=== PATIENT | male | born 1960 | race Caucasian/White ===

== ENCOUNTER 2017-10-03 21:40 | Emergency (ER) | payer BC, MEDICARE ==
[2017-10-03 23:14] LABS: ABSOLUTE BASOPHILS # (AUTO) 0.1 10^3/uL (0.0-0.2); ABSOLUTE EOSINOPHILS # (AUTO) 0.3 10^3/uL (0.0-0.6); ABSOLUTE LYMPHOCYTES (AUTO) 1.7 10^3/uL (0.5-4.7); ABSOLUTE MONOCYTES (AUTO) 0.7 10^3/uL (0.1-1.4); ABSOLUTE NEUT (AUTO) 6.2 10^3/uL (1.7-8.2); BASOPHILS % (AUTO) 0.8 % (0-2); EOSINOPHILS % (AUTO) 3.4 % (0-6); HEMATOCRIT 42.7 % (37.9-51.0); HEMOGLOBIN 14.3 g/dL (13.5-17.0); LYMPHOCYTES % (AUTO) 19.3 % (13-45); MEAN CORPUSCULAR HGB CONC 33.4 g/dL (32.0-36.0); MEAN CORPUSCULAR VOLUME 90 fl (80-97); MONOCYTES % (AUTO) 7.3 % (3-13); PLATELET COUNT 300 10^3/uL (150-450); RED BLOOD COUNT 4.76 10^6/uL (4.35-5.55); RED CELL DISTRIBUTION WIDTH 15.1 % (11.5-14.0); SEGMENTED NEUTROPHILS % (AUTO) 69.2 % (42-78); TOTAL CELLS COUNTED % (AUTO) 100 %; WHITE BLOOD COUNT 8.9 10^3/uL (4.0-10.5)
[2017-10-04] LABS: APPEARANCE,URINE CLOUDY; BILIRUBIN,URINE NEGATIVE (NEGATIVE); CALCIUM OXALATE CRYSTALS,URINE TOO NUMEROUS TO CNT /HPF; COLOR,URINE YELLOW; GLUCOSE, URINE NEGATIVE (NEGATIVE); KETONES,URINE NEGATIVE (NEGATIVE); LEUKOCYTE ESTERASE,URINE MODERATE (NEGATIVE); NITRITE,URINE NEGATIVE (NEGATIVE); PROTEIN,URINE 100 mg/dL (NEGATIVE); URINE SPECIFIC GRAVITY 1.019
[2017-10-04 00:30] LABS: ALANINE AMINOTRANSFERASE 27 U/L (21-72); ALBUMIN 4.5 g/dL (3.5-5.0); ALKALINE PHOSPHATASE 29 U/L (38-126); ANION GAP 13 (5-19); ASPARTATE AMINO TRANSFERASE 24 U/L (17-59); BILIRUBIN,DIRECT 0.4 mg/dL (0.0-0.4); BILIRUBIN,TOTAL 0.5 mg/dL (0.2-1.3); BLOOD UREA NITROGEN 20 mg/dL (7-20); CARBON DIOXIDE 29 mmol/L (22-30); CHLORIDE 105 mmol/L (98-107); GLUCOSE 111 mg/dL (75-110); LIPASE 270.4 U/L (23-300); POTASSIUM 4.5 mmol/L (3.6-5.0); SODIUM 147.2 mmol/L (137-145); TOTAL PROTEIN 7.4 g/dL (6.3-8.2)
[2017-10-04] MEDS ORDERED: NORMAL SALINE 1000 ML 1,000 ML IV ONE ×2 (00:30→03:14)
[2017-10-04] MEDS ORDERED: CEFTRIAXONE INJ 1000 MG VIAL IV ONE (00:30)
[2017-10-04] MEDS ORDERED: KETOROLAC TROMETHAMINE INJ/PF 30 MG/1 ML SDV IV ONE (00:31)
--- NOTE | 2017-10-04 00:33 | ER Document Report ---
ED General - General Chief Complaint: Lower Abdominal Pain Stated Complaint: ABDOMINAL PAIN Time Seen by Provider: 10/03/17 22:18 Notes: Patient is a 57-year-old male with a past medical history of hypertension, hyperlipidemia, prior CVA, history of incomplete bladder emptying who presents with 24 hours of left flank pain with subjective fever, nausea and frequent urination. The patient describes the pain to his left flank as a severe, stabbing, constant pain that radiates into his left lower abdomen. He states that this feels similar to when he has had kidney stones in the past. Nothing improves or worsens the pain. He has not seen his general doctor or urologist regarding today's concerns. He denies any vomiting, diarrhea, chest pain, shortness of breath, headache, neck pain or cough. TRAVEL OUTSIDE OF THE [place] IN LAST 30 DAYS: No - Related Data Allergies/Adverse Reactions: No Known Allergies Allergy (Verified 01/15/16 13:10) Past Medical History - General Information source: Patient, Relative - Social History Smoking Status: Never Smoker Frequency of alcohol use: None Drug Abuse: None Lives with: Spouse/Significant other Family History: Reviewed & Not Pertinent Patient has suicidal ideation: No Patient has homicidal ideation: No - Past Medical History Cardiac Medical History: Reports: Hx Hypercholesterolemia, Hx Hypertension - hx of- not current-no meds Denies: Hx Coronary Artery Disease, Hx Heart Attack Pulmonary Medical History: Denies: Hx Asthma, Hx Bronchitis, Hx COPD, Hx Pneumonia Neurological Medical History: Reports: Hx Cerebrovascular Accident - 2012. Denies: Hx Seizures Endocrine Medical History: Reports: Hx Diabetes Mellitus Type 2 Renal/ Medical History: Denies: Hx Peritoneal Dialysis Musculoskeletal Medical History: Reports Hx Arthritis - gout Psychiatric Medical History: Reports: Hx Depression Past Surgical History: Reports: Hx Orthopedic Surgery - Immunizations Hx Diphtheria, Pertussis, Tetanus Vaccination: Yes Review of Systems - Review of Systems Notes: Constitutional: Negative for fever. HENT: Negative for sore throat. Eyes: Negative for visual changes. Cardiovascular: Negative for chest pain. Respiratory: Negative for shortness of breath. Gastrointestinal: Positive for abdominal pain and left flank pain. Genitourinary: Positive for dysuria and gross hematuria Musculoskeletal: Negative for back pain. Skin: Negative for rash. Neurological: Negative for headaches, weakness or numbness. 10 point ROS negative except as marked above and in HPI. Physical Exam - Vital signs Vitals: Temp Pulse Resp BP Pulse Ox 98.9 F 99 17 164/99 H 95 10/03/17 21:46 10/03/17 21:46 10/03/17 21:46 10/03/17 21:46 10/03/17 21:46 Interpretation: Hypertensive Notes: PHYSICAL EXAMINATION: GENERAL: Appears moderately uncomfortable but in no acute distress HEAD: Atraumatic, normocephalic. EYES: Pupils equal round and reactive to light, extraocular movements intact, sclera anicteric, conjunctiva are normal. ENT: nares patent, oropharynx clear without exudates. Moist mucous membranes. NECK: Normal range of motion, supple without lymphadenopathy LUNGS: Breath sounds clear to auscultation bilaterally and equal. No wheezes rales or rhonchi. HEART: Regular rate and rhythm without murmurs ABDOMEN: Soft, tenderness to the left lower quadrant and left flank to palpation but no other localized areas of tenderness, normoactive bowel sounds. No guarding, no rebound. No masses appreciated. EXTREMITIES: Normal range of motion, no pitting or edema. No cyanosis. NEUROLOGICAL: No focal neurological deficits. Moves all extremities spontaneously and on command. PSYCH: Normal mood, normal affect. SKIN: Warm, Dry, normal turgor, no rashes or lesions noted. Course - Re-evaluation Re-evalutation: 10/04/17 00:32 Patient presents with 24 hours of suprapubic and left lower quadrant abdominal pain with a history of nephrolithiasis as well as urinary retention. Exam at time of my assessment is quite benign without any areas of focal tenderness, rebound or guarding. No flank tenderness. Labs are notable for findings consistent with possible pyelonephritis versus a possible infected stone. Will proceed with CT abdomen pelvis to clarify if there is a nephrolithiasis present that would indicate need for urgent referral to urology. 10/04/17 02:40 Urinalysis shows findings consistent with a possible infected stone of the pain systemically is well and does not meet sepsis criteria. His CT does show an obstructing 9 mm stone at the left UPJ with associated hydronephrosis. I have contacted [facility] and requested transfer. 10/04/17 03:15 I have discussed with Dr. Contreras the urologist on-call who has requested that I speak to the hospitalist. I spoke Dr. Loc Conley who accepted the patient. I have updated the patient on the plan of care and he is agreeable. 10/04/17 04:08 Patient's pain continues to be well controlled. Awaiting transport. Patient remains hemodynamically within acceptable limits. Maintenance fluids ongoing. - Vital Signs Vital signs: Temp Pulse Resp BP Pulse Ox 99.4 F 99 18 154/97 H 92 10/04/17 03:24 10/04/17 02:52 10/04/17 03:24 10/04/17 02:52 10/04/17 03:24 - Laboratory Result Diagrams: 10/03/17 23:00 10/03/17 23:00 Laboratory results interpreted by me: 10/03/17 10/03/17 10/03/17 23:00 23:00 23:13 RDW 15.1 H Sodium 147.2 H Creatinine 1.43 H Est GFR (Non-Af Amer) 51 L Glucose 111 H Alkaline Phosphatase 29 L Urine Protein 100 H Urine Blood LARGE H Urine Urobilinogen 2.0 H Ur Leukocyte Esterase MODERATE H - Diagnostic Test Radiology reviewed: Reports reviewed Discharge - Discharge Clinical Impression: Kidney stone on left side, Hydronephrosis, left Urinary tract infection Qualifiers: Urinary tract infection type: site unspecified Hematuria presence: with hematuria Qualified Code(s): N39.0 - Urinary tract infection, site not specified ; R31.9 - Hematuria, unspecified; R31.9 - Hematuria, unspecified Condition: Fair Disposition: [facility] Referrals: DASHA MONTIEL MD [Primary Care Provider] - Follow up as needed
--- NOTE | 2017-10-04 01:48 | RADIOLOGY REPORT (SQ) ---
EXAM DESCRIPTION: CT ABDOMEN PELVIS WITHOUT IV CONTRAST COMPLETED DATE/TME: 10/04/2017 00:30 CLINICAL HISTORY: Left abdominal pain. COMPARISON: None Available. TECHNIQUE: CT of the abdomen and pelvis without IV contrast. Evaluation of the solid organs and vasculature is suboptimal due to lack of IV contrast. DLP: 550.06 mGy-cm FINDINGS: Lung Bases: The visualized lung bases are clear. Bones: No destructive bone lesions identified. Minimal endplate spondylosis. Abdomen: Liver: The liver has normal size and density. Gallbladder: No calcified gallstones. Spleen, Pancreas, and Adrenal Glands: The spleen, pancreas, and adrenal glands are unremarkable. Kidneys: Moderate left-sided hydronephrosis. There is an obstructing 0.9 cm calculus at the left UVJ. There is a second calculus in the left renal pelvis measuring 0.9 cm. Scattered punctate nonobstructing left nephrolithiasis. Diffuse perinephric fat stranding on the left. No right-sided hydronephrosis. Vasculature: Aortoiliac atherosclerosis. IVC is unremarkable. Stomach: The stomach and duodenum have normal course. Other: No free intraperitoneal air. No free fluid or lymphadenopathy. Pelvis: Bladder: Urinary bladder is unremarkable. Bowel: Scattered diverticula of the colon without pericolic inflammatory change. No dilated loops of large or small bowel. Appendix: Normal appendix. Pelvis: Enlarged prostate. IMPRESSION: 1. There is a 0.9 cm obstructing calculus at the left UPJ producing moderate left hydronephrosis. 2. There is a second 0.9 cm calculus in the left renal pelvis. Punctate nonobstructing left renal calculi. 3. Enlarged prostate. 4. Diverticulosis without evidence of acute diverticulitis. This exam was performed according to our departmental dose-optimization program, which includes automated exposure control, adjustment of the mA and/or kV according to patient size and/or use of iterative reconstruction technique.
[2017-10-04] MEDS: MORPHINE SULFATE 10 MG/ML INJ IV PRN ×2 (03:39→08:04)
[2017-10-04 07:51] VITALS: BP 144/99
== END 2017-10-04 08:10 | disposition short-term general hospital (02) ==
LOC: ER 21:40
DX: N13.2 Hydronephrosis with renal and ureteral calculous obstruction (principal); N39.0 Urinary tract infection, site not specified; R31.9 Hematuria, unspecified; R50.9 Fever, unspecified; R11.0 Nausea; R35.0 Frequency of micturition; R10.32 Left lower quadrant pain; R30.0 Dysuria; R31.0 Gross hematuria; R33.9 Retention of urine, unspecified; R10.814 Left lower quadrant abdominal tenderness; E11.9 Type 2 diabetes mellitus without complications; I10 Essential (primary) hypertension
CPT/HCPCS: 99284; 96361; 96375; 96365; 36415; 87086; 83690; 85025; 80053; 81001; 74176; J1885; J2270; J0696; J7030

== ENCOUNTER 2018-12-31 14:59 | Emergency (ER) | payer MEDICARE ==
[2018-12-31] MEDS ORDERED: NORMAL SALINE 1000 ML 1,000 ML IV ONE ×2 (15:55→19:23)
--- NOTE | 2018-12-31 16:03 | ER Document Report ---
ED General - General Chief Complaint: Back Pain Stated Complaint: WEAKNESS Time Seen by Provider: 12/31/18 15:34 Primary Care Provider: DASHA MONTIEL MD [COMMUNITY BASED STAFF] - Follow up as needed TRAVEL OUTSIDE OF THE [place] IN LAST 30 DAYS: No - HPI Notes: Patient is a 58-year-old male who presents emergency department for evaluation of right-sided back pain. He states it began when he woke yesterday. It seems worsened by movement, nothing seems to make it better. He denies any associated fevers or chills, no nausea or vomiting. No urinary symptoms. He states his pain is currently a 9 out of 10. He [facility] today, saw a chiropractor. His chiropractor was concerned that he could have had a right- sided stroke, so advised he be brought to the emergency department for further evaluation. The patient denies any new numbness or tingling, no new weakness. He denies any bowel or bladder incontinence, no saddle anesthesia. No visual changes. No difficulty swallowing. - Related Data Allergies/Adverse Reactions: No Known Allergies Allergy (Verified 01/15/16 13:10) Home Medications: List reviewed, please see notes Past Medical History - General Information source: Patient, Relative - Social History Smoking Status: Never Smoker Frequency of alcohol use: None Family History: Reviewed & Not Pertinent, CVA Patient has suicidal ideation: No Patient has homicidal ideation: No - Past Medical History Cardiac Medical History: Reports: Hx Hypercholesterolemia, Hx Hypertension - hx of- not current-no meds Denies: Hx Coronary Artery Disease, Hx Heart Attack Pulmonary Medical History: Denies: Hx Asthma, Hx Bronchitis, Hx COPD, Hx Pneumonia Neurological Medical History: Reports: Hx Cerebrovascular Accident - 2012. Denies: Hx Seizures Endocrine Medical History: Reports: Hx Diabetes Mellitus Type 2 Renal/ Medical History: Denies: Hx Peritoneal Dialysis Musculoskeletal Medical History: Reports Hx Arthritis - gout Psychiatric Medical History: Reports: Hx Depression Past Surgical History: Reports: Hx Orthopedic Surgery - Immunizations Hx Diphtheria, Pertussis, Tetanus Vaccination: Yes Review of Systems - Review of Systems Constitutional: No symptoms reported EENT: No symptoms reported Cardiovascular: No symptoms reported Respiratory: No symptoms reported Gastrointestinal: See HPI Genitourinary: No symptoms reported Musculoskeletal: No symptoms reported Skin: No symptoms reported Neurological/Psychological: No symptoms reported Physical Exam - Vital signs Vitals: Temp Resp BP Pulse Ox 98.5 F 16 140/99 H 93 12/31/18 15:16 12/31/18 15:16 12/31/18 15:16 12/31/18 15:16 - Notes Notes: This is a very pleasant 58-year-old male, appears older than his stated age in no acute distress. Head is normocephalic and atraumatic, pupils are equal round, reactive to light. Oral mucosa is moist. Heart is regular rate and rhythm, lungs are clear to oscillation bilaterally. Abdomen soft, nontender, normoactive bowel sounds. Extremities without cyanosis or clubbing. No posterior calf tenderness. Peripheral pulses are equal. Examination of the spine yields no midline tenderness or step-off. He has paraspinal musculature tenderness noted approximately T12-L1 on the right with associated spasm. Pat francy is awake and alert, oriented x3. He has tongue deviation to the left, inability to shrug his left shoulder. The remainder of cranial nerves II through XII are grossly intact without focal neurological deficits. Strength is 2+ out of 5 left upper and left lower extremity. 4+ out of 5 right upper and lower extremities. Reflexes are hyperactive on the left. Sensation is intact throughout. Course - Re-evaluation Re-evalutation: 12/31/18 16:05 Patient presents emergency department for evaluation. He is primarily complai violet of right-sided back pain. Family became concerned he was having a stroke, so they brought him here. Based on their concerns I will order a CT scan of the head, but I do not see any new focal neurological deficits not attributable to his prior stroke. I am more concerned about his elevated heart rate in the possibility that this could be indicating some sort of infection. Sepsis work- up started. Patient given morphine and Zofran. Will continue to monitor. 12/31/18 20:24 CT scan of the brain was unremarkable. CT scan of the abdomen pelvis was ordered based on this patient's continued flank pain and nitrate positive urine. There is no signs of obstructive uropathy on the right. My suspicion is the symptoms are all secondary to urinary tract infection. He does not have a leuko cytosis. His heart rate is now in the 80s. He is afebrile. He is given a gram of IV Rocephin here. Urine sent for culture. Blood cultures also pending as well. We will send him home with a prescription for Keflex and close follow-up. He is to return to the emergency department with worsening or new concerning symptoms of any sort. - Vital Signs Vital signs: Temp Pulse Resp BP Pulse Ox 97.9 F 76 16 106/62 95 12/31/18 19:58 12/31/18 19:55 12/31/18 19:55 12/31/18 19:55 12/31/18 19:55 - Laboratory Result Diagrams: 12/31/18 15:12 12/31/18 15:12 Laboratory results interpreted by me: 12/31/18 12/31/18 12/31/18 15:12 15:29 15:54 Hgb 12.4 L RDW 15.3 H Lactic Acid 3.4 H Urine Blood LARGE H Urine Nitrite (Reflex) POSITIVE H Leukocyte Esterase Rfl TRACE H - Diagnostic Test Radiology reviewed: Reports reviewed Radiology results interpreted by me: 12/31/18 20:24 Chest X-Ray 12/31/18 15:54 IMPRESSION: NO ACUTE RADIOGRAPHIC FINDING IN THE CHEST. Head CT 12/31/18 16:07 IMPRESSION: Stable CT appearance of the brain demonstrating sequela of previous right middle cerebral artery ischemic injury. No acute findings. EVIDENCE OF ACUTE STROKE: NO. Abdomen/Pelvis CT 12/31/18 17:20 IMPRESSION: Left-sided nephrolithiasis without obstructive uropathy. No findin gs to correlate to the patient's reported right flank pain. Discharge - Discharge Clinical Impression: Urinary tract infection Condition: Stable Disposition: HOME, SELF-CARE Instructions: Low Back Pain ([facility]), Urinary Tract Infection ([facility]), Cephalexin ([facility]) Additional Instructions: Take all the antibiotic as prescribed, starting tomorrow morning. Rest, stay well-hydrated. Have your urine rechecked by your primary care physician this week. If you develop fevers, vomiting, or any other new or concerning symptoms, return immediately to the emergency department for evaluation. Referrals: DASHA MONTIEL MD [COMMUNITY BASED STAFF] - Follow up as needed
[2018-12-31] MEDS ORDERED: ONDANSETRON HCL INJ/PF 4 MG/2 ML SDV IV ONE (16:06)
[2018-12-31] MEDS ORDERED: MORPHINE SULFATE 10 MG/ML INJ IV ONE ×2 (16:06→17:16)
[2018-12-31 16:10] LABS: ALBUMIN 3.9 g/dL (3.5-5.0); ALKALINE PHOSPHATASE 40 U/L (38-126); ANION GAP 12 (5-19); ASPARTATE AMINO TRANSFERASE 17 U/L (17-59); BILIRUBIN,DIRECT 0.2 mg/dL (0.0-0.4); BILIRUBIN,TOTAL 0.5 mg/dL (0.2-1.3); BLOOD UREA NITROGEN 20 mg/dL (7-20); CALCIUM 9.3 mg/dL (8.4-10.2); CARBON DIOXIDE 24 mmol/L (22-30); CHLORIDE 105 mmol/L (98-107); GLUCOSE 103 mg/dL (75-110); POTASSIUM 4.2 mmol/L (3.6-5.0); TOTAL PROTEIN 6.5 g/dL (6.3-8.2)
[2018-12-31 16:14] LABS: ABSOLUTE EOSINOPHILS # (AUTO) 0.1 10^3/uL (0.0-0.6); ABSOLUTE LYMPHOCYTES (AUTO) 1.7 10^3/uL (0.5-4.7); ABSOLUTE MONOCYTES (AUTO) 0.4 10^3/uL (0.1-1.4); ABSOLUTE NEUT (AUTO) 4.7 10^3/uL (1.7-8.2); BASOPHILS % (AUTO) 0.6 % (0-2); HEMATOCRIT 38.1 % (37.9-51.0); HEMOGLOBIN 12.4 g/dL (13.5-17.0); LYMPHOCYTES % (AUTO) 23.9 % (13-45); MEAN CORPUSCULAR HEMOGLOBIN 27.1 pg (27.0-33.4); MEAN CORPUSCULAR HGB CONC 32.6 g/dL (32.0-36.0); MEAN CORPUSCULAR VOLUME 83 fl (80-97); MONOCYTES % (AUTO) 6.3 % (3-13); PLATELET COUNT 236 10^3/uL (150-450); RED BLOOD COUNT 4.59 10^6/uL (4.35-5.55); RED CELL DISTRIBUTION WIDTH 15.3 % (11.5-14.0); SEGMENTED NEUTROPHILS % (AUTO) 67.2 % (42-78); TOTAL CELLS COUNTED % (AUTO) 100 %; WHITE BLOOD COUNT 7.1 10^3/uL (4.0-10.5)
[2018-12-31 16:19] LABS: AMORPHOUS SEDIMENT,URINE TRACE /HPF; APPEARANCE,URINE SLIGHTLY-CLOUDY; BILIRUBIN,URINE NEGATIVE (NEGATIVE); CALCIUM OXALATE CRYSTALS,URINE RARE /HPF; COLOR,URINE YELLOW; GLUCOSE, URINE NEGATIVE (NEGATIVE); KETONES,URINE NEGATIVE (NEGATIVE); PROTEIN,URINE NEGATIVE (NEGATIVE); URINE SPECIFIC GRAVITY 1.017; UROBILINOGEN,URINE NEGATIVE mg/dL (<2.0)
--- NOTE | 2018-12-31 16:28 | RADIOLOGY REPORT (SQ) ---
EXAM DESCRIPTION: CHEST 2 VIEWS COMPLETED DATE/TIME: 12/31/2018 4:10 pm REASON FOR STUDY: elevated heart rate, eval possible sepsis COMPARISON: 04/29/2015 EXAM PARAMETERS: NUMBER OF VIEWS: two views TECHNIQUE: Digital Frontal and Lateral radiographic views of the chest acquired. RADIATION DOSE: NA LIMITATIONS: none FINDINGS: LUNGS AND PLEURA: No opacities, masses or pneumothorax. No pleural effusion. MEDIASTINUM AND HILAR STRUCTURES: No masses or contour abnormalities. HEART AND VASCULAR STRUCTURES: Heart normal size. No evidence for failure. BONES: No acute findings. HARDWARE: None in the chest. OTHER: No other significant finding. IMPRESSION: NO ACUTE RADIOGRAPHIC FINDING IN THE CHEST. TECHNICAL DOCUMENTATION: JOB ID: [id number] [employer]- All Rights Reserved Reading location - IP/workstation name: [email or web address]
--- NOTE | 2018-12-31 16:51 | RADIOLOGY REPORT (SQ) ---
EXAM DESCRIPTION: CT HEAD WITHOUT COMPLETED DATE/TIME: 12/31/2018 4:25 pm REASON FOR STUDY: eval for cva COMPARISON: Noncontrast head CT and MRI 04/29/2015 TECHNIQUE: Axial images acquired through the brain without intravenous contrast. Images reviewed wi th bone, brain and subdural windows. Additional sagittal and coronal reconstructions were generated. Images stored on PACS. All CT scanners at this facility use dose modulation, iterative reconstruction, and/or weight based d osing when appropriate to reduce radiation dose to as low as reasonably achievable (ALARA). [facility]: Dose Right [facility]: CareDose [facility]: Dose Right [facility]: Teradose 4D [facility]: Smart [employer] RADIATION DOSE: CT Rad equipment meets quality standard of care and radiation dose reduction techniq ues were employed. CTDIvol: 53.2 mGy. DLP: 964 mGy-cm. mGy. LIMITATIONS: None. FINDINGS: VENTRICLES: Normal size and contour. CEREBRUM: Re- demonstration of large territory right middle cerebral territory encephalomalacia consi stent with previous ischemic injury. No masses. No hemorrhage. No midline shift. No evidence for acute infarction. CEREBELLUM: No masses. No hemorrhage. No alteration of density. No evidence for acute infarction. EXTRAAXIAL SPACES: No fluid collections. No masses. ORBITS AND GLOBE: No intra- or extraconal masses. Normal contour of globe without masses. CALVARIUM: No fracture. PARANASAL SINUSES: No fluid or mucosal thickening. SOFT TISSUES: Incidental note is made of a coarse dystrophic calcification within the scalp at the ve rtex. No acute findings. OTHER: No other significant finding. IMPRESSION: Stable CT appearance of the brain demonstrating sequela of previous right middle cerebra l artery ischemic injury. No acute findings. EVIDENCE OF ACUTE STROKE: NO. COMMENT: Quality ID # [id number]: Final reports with documentation of one or more dose reduction techniques (e.g., Automated exposure control, adjustment of the mA and/or kV according to patient size, use of iterative reconstruction technique) TECHNICAL DOCUMENTATION: JOB ID: [id number] [employer]- All Rights Reserved Reading location - IP/workstation name: [email or web address]
[2018-12-31 16:54] LABS: VENOUS BLOOD BASE EXCESS -2.3 mmol/L; VENOUS BLOOD HCO3 23.2 mmol/L (20-32); VENOUS BLOOD PCO2 42.5 mmHg (35-63); VENOUS BLOOD PH 7.36 (7.30-7.42)
[2018-12-31 17:00] LABS: INTERNATIONAL RATION (INR) 0.94; PROTHROMBIN TIME 12.5 SEC (11.4-15.4)
--- NOTE | 2018-12-31 17:09 | EKG REPORT ---
SEVERITY:- OTHERWISE NORMAL ECG - SINUS TACHYCARDIA BORDERLINE LEFT AXIS DEVIATION : Confirmed by: Ankit Yeung MD 31-Dec-2018 17:08:22
[2018-12-31] MEDS ORDERED: CEFTRIAXONE 1 GM/D5W RTU 50 ML IV ONE (17:21)
[2018-12-31] MEDS ORDERED: CEFTRIAXONE 1 GM/D5W RTU 1 GM/50 ML RTUPB IV ONE (17:37)
--- NOTE | 2018-12-31 17:54 | RADIOLOGY REPORT (SQ) ---
EXAM DESCRIPTION: CT ABD/PELVIS NO ORAL OR IV COMPLETED DATE/TIME: 12/31/2018 5:40 pm REASON FOR STUDY: right flank pain, eval for stone COMPARISON: 10/04/2017 TECHNIQUE: CT scan of the abdomen and pelvis performed without intravenous or oral contrast. Images reviewed with lung, soft tissue, and bone windows. Reconstructed coronal and sagittal MPR images revi ewed. All images stored on PACS. All CT scanners at this facility use dose modulation, iterative reconstruction, and/or weight based d osing when appropriate to reduce radiation dose to as low as reasonably achievable (ALARA). [facility]: Dose Right [facility]: CareDose [facility]: Dose Right [facility]: Teradose 4D [facility]: [employer] RADIATION DOSE: mGy. LIMITATIONS: None. FINDINGS: LOWER CHEST: Bibasilar atelectasis versus scarring. No significant findings. No findings to correlate to the patient's right flank pain. NON-CONTRASTED LIVER, SPLEEN, ADRENALS: Evaluation limited by lack of IV contrast. No identified sign ificant masses. PANCREAS: No masses. No peripancreatic inflammatory changes. GALLBLADDER: No identified stones by CT criteria. No inflammatory changes to suggest cholecystitis. RIGHT KIDNEY AND URETER: No suspicious masses. Assessment limited by lack of IV contrast. No signif icant calcifications. No hydronephrosis or hydroureter. LEFT KIDNEY AND URETER: No suspicious masses. Assessment limited by lack of IV contrast. A 6 x 7 x 6 mm calcification is seen within the inferior pole collecting system. No hydronephrosis or hydrour eter. AORTA AND RETROPERITONEUM: No aneurysm. No retroperitoneal masses or adenopathy. BOWEL AND PERITONEAL CAVITY: Few, scattered colonic diverticula without focal inflammatory changes. APPENDIX: Normal. PELVIS, BLADDER, AND ABDOMINAL WALL:No abnormal masses. No free fluid. Bladder normal. BONES: Degenerative changes are seen of the hips. OTHER: No other significant finding. IMPRESSION: Left-sided nephrolithiasis without obstructive uropathy. No findings to correlate to th e patient's reported right flank pain. COMMENT: Quality ID # [id number]: Final reports with documentation of one or more dose reduction techniques (e.g., Automated exposure control, adjustment of the mA and/or kV according to patient size, use of iterative reconstruction technique) TECHNICAL DOCUMENTATION: JOB ID: [id number]- All Rights Reserved Reading location - IP/workstation name: [email or web address]
[2018-12-31 19:56] VITALS: BP 106/62
== END 2018-12-31 20:50 | disposition home or self-care (01) ==
LOC: ER 14:59
DX: N39.0 Urinary tract infection, site not specified (principal); M54.9 Dorsalgia, unspecified; R53.1 Weakness; I10 Essential (primary) hypertension; E11.9 Type 2 diabetes mellitus without complications
CPT/HCPCS: 93005; 36415; 87040; 87086; 85025; 85610; 80053; 81001; 82803; 83605; 71046; 70450; 74176; 93010; J2270; J2405; J7030; J0696